=== PATIENT | male | born 1995 | race Caucasian/White ===

== ENCOUNTER 2016-10-14 22:52 | Emergency (ER) | payer OTHER ==
[~2016-10-14] VITALS: Ht 170.2 cm; Wt 80.0 kg
[~2016-10-14 22:52] MED LIST: HYDR-3580 PO; ISON100T2 PO
[2016-10-14 22:56] VITALS: BP 125/87; PULSE 88; RESP 16; TEMP 98; O2SAT 100
[2016-10-14 23:43] VITALS: BP 139/81; PULSE 71; RESP 16; O2SAT 100
[2016-10-15] MEDS ORDERED: IBUPROFEN 600 MG TAB PO ONE
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
[2016-10-15] MEDS ORDERED: MOTR200T4 PO (01:33)
[2016-10-15] MEDS ORDERED: CYCL1TAB29 PO (01:33)
== END 2016-10-15 01:46 | disposition home or self-care (01) ==
LOC: NEPC 22:52
DX: M54.2 Cervicalgia (principal); M25.512 Pain in left shoulder; M25.552 Pain in left hip; M25.562 Pain in left knee; V49.40XA Driver injured in collision with unspecified motor vehicles in traffic accident, initial encounter
CPT/HCPCS: 72170; 73030; 73564; 99284; L0150